=== PATIENT | male | born 1930 | race Caucasian/White ===

== ENCOUNTER → 2016-08-16 | Outpatient (CLI) | payer MEDICARE | LOC: GMAL 11:07 | PROVIDERS: ATTEND Family Medicine | DX: D51.3 Other dietary vitamin B12 deficiency anemia (principal); R53.82 Chronic fatigue, unspecified; E55.9 Vitamin D deficiency, unspecified ==

== ENCOUNTER → 2016-09-07 | Outpatient (CLI) | payer MEDICARE | LOC: GMAL 17:27 | PROVIDERS: ATTEND Family Medicine | DX: R56.9 Unspecified convulsions (principal) ==

== ENCOUNTER 2017-06-24 10:46 | Emergency (ER) | payer MEDICARE ==
[2017-06-24 11:27] VITALS: TEMP 97.8
[2017-06-24 12:57] VITALS: BP 158/74
[2017-06-24] MEDS ORDERED: NITROFURANTOIN MONOHYDRATE MAC 100 MG CAP PO ONE (13:17)
--- NOTE | 2017-06-24 13:23 | ED.PDOC ---
History of Present Illness - General Chief Complaint: Problem Stated Complaint: Leaking from around Costello cath Time Seen by Provider: 06/24/17 11:04 Source: patient, RN notes reviewed, Vital Signs reviewed, family - Exam Limitations: physical impairment - Minimally communicative since CVA - History of Present Illness Initial Comments: Patient comes in with c/o of leaking around his catheter. She took him to [facility] last night and catheter was replaced. He has continued to leak since then. Urine is draining into catheter bag but reports if he lays back he leaks. Denies any other symptoms. He uses a catheter chronically. Timing/Duration: yesterday Quality: intermittent - leaking with laying down but not with sitting up Onset Location: urethral Radiation: none Activites at Onset: sleep Prior abdominal problems: similar symptoms - Chronic catheter use to due BPH and CVA Sexual intercourse history: not active Improving Factors: nothing Worsening Factors: other - laying down Associated Symptoms: denies symptoms Allergies/Adverse Reactions: Allergies NO KNOWN ALLERGY Allergy (Verified 06/24/17 11:32) Home Medications: Ambulatory Orders LORazepam [Ativan] 0.5 mg PO BEDTIME 04/22/16 Potassium Citrate ER 540 mg PO TID 04/22/16 Sertraline HCl [Zoloft] 50 mg PO DAILY 04/22/16 Simvastatin 5 mg PO BEDTIME 04/22/16 Telmisartan 80 mg PO DAILY 04/22/16 amLODIPine BESYLATE [Norvasc] 10 mg PO DAILY 04/22/16 Donepezil Hydrochloride [Donepezil HCl] 10 mg PO DAILY 06/24/17 Levetiracetam [Levetiracetam ER] 500 mg PO BID 06/24/17 Nitrofurantoin Monohydrate Mac [Macrobid] 100 mg PO BID #20 cap 06/24/17 Review of Systems - Review of Systems Constitutional: States: no symptoms reported Respiratory: States: no symptoms reported Cardiology: States: no symptoms reported Gastrointestinal/Abdominal: States: no symptoms reported Genitourinary: States: see HPI Musculoskeletal: States: no symptoms reported Skin: States: no symptoms reported All other Systems: No Change from Baseline Past Medical History (General) - Patient Medical History Hx Seizures: No Hx Stroke: Yes - 1993 Hx Dementia: No Hx Asthma: No Hx of COPD: No Hx Cardiac Disorders: No Hx Congestive Heart Failure: No Hx Pacemaker: No Hx Hypertension: Yes Hx Thyroid Disease: No Hx Diabetes: No Hx Gastroesophageal Reflux: No Hx Renal Disease: No Hx Cancer: No Hx of HIV: No Hx Hepatitis C: No Hx MRSA: No Surgical History: colectomy - Vaccination History Hx Influenza Vaccination: No Hx Pneumococcal Vaccination: No - Social History Hx Tobacco Use: No Hx Alcohol Use: No Hx Substance Use: No Hx Substance Use Treatment: No Hx Depression: No Family Medical History - Family History Mother Family History: No Known Living Status: Physical Exam - Physical Exam General Appearance: Alert, Comfortable, No apparent distress, Well Developed, Well Groomed, Well Hydrated, Well Nourished Neck: supple, normal inspection Cardiovascular/Respiratory: regular rate, rhythm, no M/R/G, normal breath sounds , no respiratory distress Gastrointestinal/Abdominal: normal bowel sounds, non tender, soft, no organomegaly Male Genital Exam: normal genitalia, other - Catheter in place with urine leakage around it. No erythema or swelling Extremity: normal range of motion Neurologic: alert, normal mood/affect Skin Exam: normal color, warm/dry Comments: Vital Signs 06/24/17 06/24/17 11:25 12:45 Temperature 97.8 F Pulse Rate [ 71 64 Left Radial] Respiratory 18 16 Rate Blood Pressure 152/77 158/74 [Left Arm] O2 Sat by Pulse 93 L 94 L Oximetry Progress - Progress Progress: 06/24/17 13:26 Catheter checked by nursing staff. Flowing well. Added an additional 12cc of saline to bulb as only 8cc was present. Continued to lead around catheter. Recheck showed bulb stayed inflated w/o loss of volume. Discussed UTI with patient and . Will attempt to place a larger catheter as thinks the one that was taken out last night was larger than the one it was replaced with. Macrobid 100mg PO given 06/24/17 13:56 Catheter replaced with 18fr by nurse w/o difficulty Has not noticed any leaking since change. Will d/c home with Rx for Macrobid and follow up with Urologist. - Results/Orders Results/Orders: Laboratory Tests 06/24/17 12:24 Urine Color Yellow Urine Appearance Cloudy Urine pH 7.5 Ur Specific [place] 1.015 Urine Protein Negative Urine Glucose (UA) Negative Urine Ketones Negative Urine Blood Trace-intact H Urine Nitrite Negative Urine Bilirubin Negative Urine Urobilinogen 0.2 Ur Leukocyte Esterase Large H Urine RBC 3-5 H Urine WBC >50 H Ur Epithelial Cells 0 Urine Bacteria 4+ H Departure - Departure Clinical Impression: Catheter (urine) change required Urinary tract infection Qualifiers: Urinary tract infection type: acute cystitis Hematuria presence: without hematuria Qualified Code(s): N30.00 - Acute cystitis without hematuria Time of Disposition: 13:59 Disposition: Discharge to Home or Self Care Condition: Good Departure Forms: ED Discharge - Pt. Copy, Patient Portal Self Enrollment Instructions: DI for Urinary Tract Infection (UTI) Diet: resume usual diet Activity: increase activity as tolerated Referrals: Mook Lomeli III, MD [Primary Care Provider] - 1-2 Weeks Prescriptions: Nitrofurantoin Monohydrate Mac [Macrobid] 100 mg PO BID #20 cap Home Medications: Ambulatory Orders LORazepam [Ativan] 0.5 mg PO BEDTIME 04/22/16 Potassium Citrate ER 540 mg PO TID 04/22/16 Sertraline HCl [Zoloft] 50 mg PO DAILY 04/22/16 Simvastatin 5 mg PO BEDTIME 04/22/16 Telmisartan 80 mg PO DAILY 04/22/16 amLODIPine BESYLATE [Norvasc] 10 mg PO DAILY 04/22/16 Donepezil Hydrochloride [Donepezil HCl] 10 mg PO DAILY 06/24/17 Levetiracetam [Levetiracetam ER] 500 mg PO BID 06/24/17 Nitrofurantoin Monohydrate Mac [Macrobid] 100 mg PO BID #20 cap 06/24/17
[2017-06-24 14:26] VITALS: O2SAT 95
== END 2017-06-24 14:12 | disposition home or self-care (01) ==
LOC: ER 10:46
DX: T83.038A Leakage of other urinary catheter, initial encounter (principal); N30.00 Acute cystitis without hematuria; I10 Essential (primary) hypertension; Z86.73 Personal history of transient ischemic attack (TIA), and cerebral infarction without residual deficits; Z79.899 Other long term (current) drug therapy

== ENCOUNTER 2017-11-14 08:20 | Emergency (ER) | payer MEDICARE ==
--- NOTE | 2017-11-14 09:09 | ED.PDOC ---
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 Timing/Duration: yesterday Quality: other - no pain Onset Location: unknown Radiation: none Activites at Onset: none Prior abdominal problems: none Sexual intercourse history: not active Improving Factors: nothing Worsening Factors: nothing Associated Symptoms: denies symptoms Allergies/Adverse Reactions: Allergies NO KNOWN ALLERGY Allergy (Verified 06/24/17 11:32) Home Medications: Ambulatory Orders LORazepam [Ativan] 0.5 mg PO BEDTIME 04/22/16 Potassium Citrate ER 540 mg PO TID 04/22/16 Sertraline HCl [Zoloft] 50 mg PO DAILY 04/22/16 Simvastatin 5 mg PO BEDTIME 04/22/16 Telmisartan 80 mg PO DAILY 04/22/16 amLODIPine BESYLATE [Norvasc] 10 mg PO DAILY 04/22/16 Donepezil Hydrochloride [Donepezil HCl] 10 mg PO DAILY 06/24/17 Levetiracetam [Levetiracetam ER] 500 mg PO BID 06/24/17 Nitrofurantoin Monohydrate Mac [Macrobid] 100 mg PO BID #20 cap 06/24/17 Review of Systems - Review of Systems Constitutional: States: see HPI EENTM: States: no symptoms reported Respiratory: States: no symptoms reported Cardiology: States: no symptoms reported Gastrointestinal/Abdominal: States: no symptoms reported Genitourinary: States: see HPI All other Systems: Reviewed and Negative, No Change from Baseline Past Medical History (General) - Patient Medical History Hx Seizures: No Hx Stroke: Yes - 1993 Hx Dementia: No Hx Asthma: No Hx of COPD: No Hx Cardiac Disorders: Yes - high cholesterol Hx Congestive Heart Failure: No Hx Pacemaker: No Hx Hypertension: Yes Hx Thyroid Disease: No Hx Diabetes: No Hx Gastroesophageal Reflux: No Hx Renal Disease: No Hx Cancer: No Hx of HIV: No Hx Hepatitis C: No Hx MRSA: No - Vaccination History Hx Influenza Vaccination: No Hx Pneumococcal Vaccination: No - Social History Hx Tobacco Use: No Hx Alcohol Use: No Hx Substance Use: No Hx Substance Use Treatment: No Hx Depression: No Hx Physical Abuse: No Hx Emotional Abuse: No - Activities of Daily Living Patient Lives Alone: No Grooming Ability: Independent Eating (Feeding) Ability: Independent Toileting Ability: Independent Family Medical History - Family History Mother Family History: No Known Living Status: Physical Exam - Physical Exam General Appearance: Alert, Comfortable, No apparent distress, Other - non verbal from previous cva Eyes, Ears, Nose, Throat Exam: normal ENT inspection Neck: full range of motion, supple Cardiovascular/Respiratory: regular rate, rhythm, no M/R/G, normal peripheral pulses Gastrointestinal/Abdominal: non tender, soft, no organomegaly, other - no suprapubic distention but noted leakage of urine around meatus despite adding 20 more cc of water to the bulb. Back Exam: no CVA tenderness, no vertebral tenderness Extremity: no pedal edema, no calf tenderness Neurologic: alert, aphasia Skin Exam: normal color, warm/dry Progress - Progress Progress: 11/14/17 09:11 Vital Signs - 24 hr 11/14/17 08:29 Temperature 96.5 F L Pulse Rate [ 63 Right Radial] Respiratory 18 Rate Blood Pressure 148/76 [Left Arm] O2 Sat by Pulse 98 Oximetry 11/14/17 09:23 Indwelling cath replaced with Fr 18 indwelling cath noted blood in urine then irrigated with 50 cc 0f NS noted good flow of urine no leakage around meatus 11/14/17 09:56 Talked to about blood that came out after changing to bigger size catheter and explained that his urethra and bladder getting more friable from chronic indwelling cath but no further bleeding noted on the catheter bag.Advised to come back to er if there is concern about blockage of cath and any further bleeding. Departure - Departure Clinical Impression: Chronic indwelling Costello catheter Displacement of indwelling urethral catheter Qualifiers: Encounter type: initial encounter Qualified Code(s): T83.021A - Displacement of indwelling urethral catheter, initial encounter Time of Disposition: 10:00 Disposition: Discharge to Home or Self Care Condition: Fair Departure Forms: ED Discharge - Pt. Copy, Patient Portal Self Enrollment Referrals: STERLING ARGUETA MD [Primary Care Provider] - 1-2 Weeks Home Medications: Ambulatory Orders LORazepam [Ativan] 0.5 mg PO BEDTIME 04/22/16 Potassium Citrate ER 540 mg PO TID 04/22/16 Sertraline HCl [Zoloft] 50 mg PO DAILY 04/22/16 Simvastatin 5 mg PO BEDTIME 04/22/16 Telmisartan 80 mg PO DAILY 04/22/16 amLODIPine BESYLATE [Norvasc] 10 mg PO DAILY 04/22/16 Donepezil Hydrochloride [Donepezil HCl] 10 mg PO DAILY 06/24/17 Levetiracetam [Levetiracetam ER] 500 mg PO BID 06/24/17 Nitrofurantoin Monohydrate Mac [Macrobid] 100 mg PO BID #20 cap 06/24/17 Additional Instructions: Return to ER as needed;Follow up with primary Md and Urologist Dr. Argueta as needed
[2017-11-14 10:04] VITALS: BP 148/75; TEMP 97.1; O2SAT 99
== END 2017-11-14 10:05 | disposition home or self-care (01) ==
LOC: ER 08:20
DX: T83.021A Displacement of indwelling urethral catheter, initial encounter (principal); E78.00 Pure hypercholesterolemia, unspecified; I10 Essential (primary) hypertension; I69.928 Other speech and language deficits following unspecified cerebrovascular disease

== ENCOUNTER 2018-01-05 20:18 | Emergency (ER) | payer MEDICARE ==
--- NOTE | 2018-01-05 20:30 | ED.PDOC ---
History of Present Illness - General Chief Complaint: Problem Stated Complaint: problems with catheter Time Seen by Provider: 01/05/18 20:24 Source: family - Exam Limitations: no limitations - History of Present Illness Initial Comments: Reno Alfaro 87 y/o male with chronic indwelling catheter brought by stating not much urine coming out from rowland catheter after it was replaced at [facility] this am.Had history of old CVa w/speech deficit , neurogenic bladder and bph. Timing/Duration: this evening Quality: mild Onset Location: suprapubic Activites at Onset: none Prior abdominal problems: similar symptoms Sexual intercourse history: not active Improving Factors: nothing Worsening Factors: nothing Associated Symptoms: other - see hpi Allergies/Adverse Reactions: Allergies NO KNOWN ALLERGY Allergy (Verified 06/24/17 11:32) Home Medications: Ambulatory Orders LORazepam [Ativan] 0.5 mg PO BEDTIME 04/22/16 Potassium Citrate ER 540 mg PO TID 04/22/16 Sertraline HCl [Zoloft] 50 mg PO DAILY 04/22/16 Simvastatin 5 mg PO BEDTIME 04/22/16 Telmisartan 80 mg PO DAILY 04/22/16 amLODIPine BESYLATE [Norvasc] 10 mg PO DAILY 04/22/16 Donepezil Hydrochloride [Donepezil HCl] 10 mg PO DAILY 06/24/17 Levetiracetam [Levetiracetam ER] 500 mg PO BID 06/24/17 Nitrofurantoin Monohydrate Mac [Macrobid] 100 mg PO BID #20 cap 06/24/17 Review of Systems - Review of Systems Constitutional: States: no symptoms reported EENTM: States: no symptoms reported Respiratory: States: no symptoms reported Genitourinary: States: see HPI Neurological: States: see HPI All other Systems: Reviewed and Negative, No Change from Baseline Past Medical History (General) - Patient Medical History Hx Seizures: No Hx Stroke: Yes - 1993 Hx Dementia: No Hx Asthma: No Hx of COPD: No Hx Cardiac Disorders: Yes - high cholesterol Hx Congestive Heart Failure: No Hx Pacemaker: No Hx Hypertension: Yes Hx Thyroid Disease: No Hx Diabetes: No Hx Gastroesophageal Reflux: No Hx Renal Disease: No Hx Cancer: No Hx of HIV: No Hx Hepatitis C: No Hx MRSA: No - Vaccination History Hx Influenza Vaccination: No Hx Pneumococcal Vaccination: No - Social History Hx Tobacco Use: No Hx Alcohol Use: No Hx Substance Use: No Hx Substance Use Treatment: No Hx Depression: No Hx Physical Abuse: No Hx Emotional Abuse: No Family Medical History - Family History Mother Family History: No Known Living Status: Physical Exam - Physical Exam General Appearance: Alert, No apparent distress Eyes, Ears, Nose, Throat Exam: normal ENT inspection Neck: supple Cardiovascular/Respiratory: regular rate, rhythm, no M/R/G, normal peripheral pulses Gastrointestinal/Abdominal: non tender, soft, no organomegaly, other - indwelling catheter patent Male Genital Exam: other - indwelling catheter Back Exam: no CVA tenderness, no vertebral tenderness Neurologic: alert, other - dysarthria residual from old cva Progress - Progress Progress: 01/05/18 21:07 Vital Signs - 8 hr 01/05/18 20:23 Temperature 98.4 F Pulse Rate [ 80 left] Respiratory 18 Rate Blood Pressure 140/68 [left] O2 Sat by Pulse 97 Oximetry Catheter flushed and bulb inflated with good flow Departure - Departure Clinical Impression: Chronic indwelling Rowland catheter Rowland catheter problem Qualifiers: Encounter type: initial encounter Qualified Code(s): T83.9XXA - Unspecified complication of genitourinary prosthetic device, implant and graft, initial encounter Time of Disposition: 21:09 Disposition: Discharge to Home or Self Care Condition: Fair Departure Forms: ED Discharge - Pt. Copy, Patient Portal Self Enrollment Instructions: How to Care for Your Rowland Catheter -- Male Referrals: STERLING ARGUETA MD [Primary Care Provider] - 1-2 Weeks Home Medications: Ambulatory Orders LORazepam [Ativan] 0.5 mg PO BEDTIME 04/22/16 Potassium Citrate ER 540 mg PO TID 04/22/16 Sertraline HCl [Zoloft] 50 mg PO DAILY 04/22/16 Simvastatin 5 mg PO BEDTIME 04/22/16 Telmisartan 80 mg PO DAILY 04/22/16 amLODIPine BESYLATE [Norvasc] 10 mg PO DAILY 04/22/16 Donepezil Hydrochloride [Donepezil HCl] 10 mg PO DAILY 06/24/17 Levetiracetam [Levetiracetam ER] 500 mg PO BID 06/24/17 Nitrofurantoin Monohydrate Mac [Macrobid] 100 mg PO BID #20 cap 06/24/17 Additional Instructions: Follow up with your UROLOGIST as NEEDED
[2018-01-05 20:57] VITALS: TEMP 98.4; O2SAT 97
[2018-01-05 21:31] VITALS: BP 144/69
== END 2018-01-05 21:30 | disposition home or self-care (01) ==
LOC: ER 20:18
DX: T83.9XXA Unspecified complication of genitourinary prosthetic device, implant and graft, initial encounter (principal); I69.928 Other speech and language deficits following unspecified cerebrovascular disease; I69.998 Other sequelae following unspecified cerebrovascular disease; E78.00 Pure hypercholesterolemia, unspecified; I10 Essential (primary) hypertension

== ENCOUNTER 2018-01-06 16:51 | Emergency (ER) | payer MEDICARE ==
[2018-01-06 17:09] VITALS: TEMP 98.5
--- NOTE | 2018-01-06 17:48 | ED.PDOC ---
History of Present Illness - General Chief Complaint: Problem Time Seen by Provider: 01/06/18 17:45 Source: patient, family Exam Limitations: other - dementia primary historian was - History of Present Illness Initial Comments: patient comes in today for clogged catheter. Last night he was having some difficulties with it and he came to the emergency room and it was replaced. This morning it stopped draining again and he is having abdominal distention and discomfort. After it was irrigated by nurse on admission patient felt better and the catheter was able to be drained. He denies any fever, chills, nausea or vomiting. His says that he is doing fine except for the catheter which he's had for neurogenic bladder dysfunction for some time. History is limited from the patient as he does have advanced dementia. Timing/Duration: 4-6 hours Severity: moderate Improving Factors: nothing Worsening Factors: nothing Allergies/Adverse Reactions: Allergies NO KNOWN ALLERGY Allergy (Verified 06/24/17 11:32) Home Medications: Ambulatory Orders LORazepam [Ativan] 0.5 mg PO BEDTIME 04/22/16 Potassium Citrate ER 540 mg PO TID 04/22/16 Sertraline HCl [Zoloft] 50 mg PO DAILY 04/22/16 Simvastatin 5 mg PO BEDTIME 04/22/16 Telmisartan 80 mg PO DAILY 04/22/16 amLODIPine BESYLATE [Norvasc] 10 mg PO DAILY 04/22/16 Donepezil Hydrochloride [Donepezil HCl] 10 mg PO DAILY 06/24/17 Levetiracetam [Levetiracetam ER] 500 mg PO BID 06/24/17 Nitrofurantoin Monohydrate Mac [Macrobid] 100 mg PO BID #20 cap 06/24/17 Review of Systems - Review of Systems Constitutional: Denies: chills, fever EENTM: States: no symptoms reported Respiratory: States: no symptoms reported Cardiology: States: no symptoms reported Gastrointestinal/Abdominal: States: no symptoms reported Genitourinary: States: see HPI Past Medical History (General) - Patient Medical History Hx Seizures: No Hx Stroke: Yes - 1993 Hx Dementia: Yes Hx Asthma: No Hx of COPD: No Hx Cardiac Disorders: Yes - high cholesterol Hx Congestive Heart Failure: No Hx Pacemaker: No Hx Hypertension: Yes Hx Thyroid Disease: No Hx Diabetes: No Hx Gastroesophageal Reflux: No Hx Renal Disease: No Hx Cancer: No Hx of HIV: No Hx Hepatitis C: No Hx MRSA: No - Vaccination History Hx Tetanus, Diphtheria Vaccination: No Hx Influenza Vaccination: No Hx Pneumococcal Vaccination: No - Social History Hx Tobacco Use: No Hx Alcohol Use: No Hx Substance Use: No Hx Substance Use Treatment: No Hx Depression: No Hx Physical Abuse: No Hx Emotional Abuse: No Family Medical History - Family History Mother Family History: No Known Living Status: Physical Exam - Physical Exam General Appearance: No apparent distress Neck: non-tender, full range of motion Respiratory: chest non-tender, lungs clear, normal breath sounds Cardiovascular/Chest: normal peripheral pulses, regular rate, rhythm, no edema, no gallop, no JVD, no murmur Gastrointestinal/Abdominal: normal bowel sounds, non tender, soft, no organomegaly Departure - Departure Clinical Impression: Costello catheter problem Qualifiers: Encounter type: initial encounter Qualified Code(s): T83.9XXA - Unspecified complication of genitourinary prosthetic device, implant and graft, initial encounter Disposition: Discharge to Home or Self Care Condition: Good Departure Forms: ED Discharge - Pt. Copy, Patient Portal Self Enrollment Diet: regular diet Referrals: STERLING ARGUETA MD [Primary Care Provider] - 1-2 Weeks Home Medications: Ambulatory Orders LORazepam [Ativan] 0.5 mg PO BEDTIME 04/22/16 Potassium Citrate ER 540 mg PO TID 04/22/16 Sertraline HCl [Zoloft] 50 mg PO DAILY 04/22/16 Simvastatin 5 mg PO BEDTIME 04/22/16 Telmisartan 80 mg PO DAILY 04/22/16 amLODIPine BESYLATE [Norvasc] 10 mg PO DAILY 04/22/16 Donepezil Hydrochloride [Donepezil HCl] 10 mg PO DAILY 06/24/17 Levetiracetam [Levetiracetam ER] 500 mg PO BID 06/24/17 Nitrofurantoin Monohydrate Mac [Macrobid] 100 mg PO BID #20 cap 06/24/17 Additional Instructions: follow-up with PCP on Sunday morning and sooner if any problems with the catheter. Return to ER for fever, chills, nausea, vomiting, or failure for the catheter to continue to drain.
[2018-01-06] MEDS ORDERED: cefTRIAXone SODIUM 1 GM VIAL IM ONE (18:34)
[2018-01-06] MEDS ORDERED: LIDOCAINE 1% 10 ML VIAL INJ ONE (18:43)
[2018-01-06 19:00] VITALS: BP 132/71; O2SAT 93
== END 2018-01-06 18:59 | disposition home or self-care (01) ==
LOC: ER 16:51
DX: T83.098A Other mechanical complication of other urinary catheter, initial encounter (principal); F03.90 Unspecified dementia, unspecified severity, without behavioral disturbance, psychotic disturbance, mood disturbance, and anxiety; E78.00 Pure hypercholesterolemia, unspecified; I10 Essential (primary) hypertension; Z86.73 Personal history of transient ischemic attack (TIA), and cerebral infarction without residual deficits; Z79.899 Other long term (current) drug therapy
CPT/HCPCS: 81001; 87086; J0696

== ENCOUNTER 2018-01-07 13:37 | Emergency (ER) | payer MEDICARE ==
--- NOTE | 2018-01-07 13:59 | ED.PDOC ---
History of Present Illness - General Chief Complaint: Problem Stated Complaint: catheter problems Time Seen by Provider: 01/07/18 13:56 Source: patient, family Exam Limitations: clinical condition - History of Present Illness Initial Comments: the patient's 87-year-old male presenting to the emergency room secondary to having his Costello catheter pulled out on accident home. He had this placed several days ago secondary to urinary retention. He is still having some urinary retention since he came out of couple of hours ago. There is no blood at the urethral meatus. Catheter is completely out upon arrival. Timing/Duration: 1-3 hours Severity: mild Improving Factors: nothing Worsening Factors: nothing Associated Symptoms: denies symptoms Allergies/Adverse Reactions: Allergies NO KNOWN ALLERGY Allergy (Verified 06/24/17 11:32) Home Medications: Ambulatory Orders LORazepam [Ativan] 0.5 mg PO BEDTIME 04/22/16 Potassium Citrate ER 540 mg PO TID 04/22/16 Sertraline HCl [Zoloft] 50 mg PO DAILY 04/22/16 Simvastatin 5 mg PO BEDTIME 04/22/16 Telmisartan 80 mg PO DAILY 04/22/16 amLODIPine BESYLATE [Norvasc] 10 mg PO DAILY 04/22/16 Donepezil Hydrochloride [Donepezil HCl] 10 mg PO DAILY 06/24/17 Levetiracetam [Levetiracetam ER] 500 mg PO BID 06/24/17 Nitrofurantoin Monohydrate Mac [Macrobid] 100 mg PO BID #20 cap 06/24/17 Sulfa/Trimeth 800/160 (Ds) Tab [Bactrim DS] 1 tablet PO BID #20 tab 01/06/18 Review of Systems - Review of Systems Review of Systems: 01/07/18 13:58 review of systems is significantly limited secondary to dementia. Constitutional: States: no symptoms reported EENTM: States: no symptoms reported Respiratory: States: no symptoms reported Cardiology: States: no symptoms reported Gastrointestinal/Abdominal: States: no symptoms reported Genitourinary: States: see HPI Skin: States: no symptoms reported Neurological: States: see HPI Endocrine: States: no symptoms reported Past Medical History (General) - Patient Medical History Hx Seizures: No Hx Stroke: Yes - 1993 Hx Dementia: Yes Hx Asthma: No Hx of COPD: No Hx Cardiac Disorders: Yes - high cholesterol Hx Congestive Heart Failure: No Hx Pacemaker: No Hx Hypertension: Yes Hx Thyroid Disease: No Hx Diabetes: No Hx Gastroesophageal Reflux: No Hx Renal Disease: No Hx Cancer: No Hx of HIV: No Hx Hepatitis C: No Hx MRSA: No - Vaccination History Hx Tetanus, Diphtheria Vaccination: No Hx Influenza Vaccination: No Hx Pneumococcal Vaccination: No - Social History Hx Tobacco Use: No Hx Alcohol Use: No Hx Substance Use: No Hx Substance Use Treatment: No Hx Depression: No Hx Physical Abuse: No Hx Emotional Abuse: No Family Medical History - Family History Mother Family History: No Known Living Status: Physical Exam - Physical Exam General Appearance: Alert, Comfortable, No apparent distress Eye Exam: bilateral normal Ears, Nose, Throat: normal ENT inspection, normal pharynx Neck: full range of motion, supple Respiratory: no respiratory distress, no accessory muscle use Cardiovascular/Chest: normal peripheral pulses, no edema Peripheral Pulses: dorsalis pedis,right: 2+, dorsalis pedis,left: 2+ Gastrointestinal/Abdominal: non tender, soft, other - mild suprapubic discomfort secondary to bladder filling Rectal Exam: deferred Back Exam: normal inspection, no CVA tenderness Extremity: non-tender, normal inspection, no pedal edema, normal capillary refill Neurologic: ad writer II-XII nml as tested, alert, normal mood/affect - ccording to Skin Exam: normal color Comments: Vital Signs - 8 hr 01/07/18 13:49 Temperature 98.2 F Pulse Rate [ 81 Left] Respiratory 20 Rate Blood Pressure 148/72 [Left Arm] O2 Sat by Pulse 95 Oximetry Progress - Progress Progress: 01/07/18 13:59 the patient is an 87-year-old male presenting secondary to accidental removal of Costello catheter. Catheter was initially placed secondary to urinary retention which appears to still be a problem. Costello catheter was replaced. He needs to keep his follow-up as was previously scheduled. ER warnings were given. Departure - Departure Clinical Impression: Urinary retention Disposition: Discharge to Home or Self Care Condition: Fair Departure Forms: ED Discharge - Pt. Copy, Patient Portal Self Enrollment Instructions: DI for Urinary Retention in Men Diet: regular diet Activity: increase activity as tolerated Referrals: Darion Meredith [Primary Care Provider] - 1-2 Weeks Home Medications: Ambulatory Orders LORazepam [Ativan] 0.5 mg PO BEDTIME 04/22/16 Potassium Citrate ER 540 mg PO TID 04/22/16 Sertraline HCl [Zoloft] 50 mg PO DAILY 04/22/16 Simvastatin 5 mg PO BEDTIME 04/22/16 Telmisartan 80 mg PO DAILY 04/22/16 amLODIPine BESYLATE [Norvasc] 10 mg PO DAILY 04/22/16 Donepezil Hydrochloride [Donepezil HCl] 10 mg PO DAILY 06/24/17 Levetiracetam [Levetiracetam ER] 500 mg PO BID 06/24/17 Nitrofurantoin Monohydrate Mac [Macrobid] 100 mg PO BID #20 cap 06/24/17 Sulfa/Trimeth 800/160 (Ds) Tab [Bactrim DS] 1 tablet PO BID #20 tab 01/06/18 Additional Instructions: the patient is an 87-year-old male presenting secondary to accidental removal of Costello catheter. Catheter was initially placed secondary to urinary retention which appears to still be a problem. Costello catheter was replaced. He needs to keep his follow-up as was previously scheduled. ER warnings were given.
[2018-01-07 14:35] VITALS: BP 148/72; TEMP 98.2
[2018-01-07 15:28] VITALS: O2SAT 96
== END 2018-01-07 15:28 | disposition home or self-care (01) ==
LOC: ER 13:37
DX: T83.021A Displacement of indwelling urethral catheter, initial encounter (principal); R33.9 Retention of urine, unspecified; F03.90 Unspecified dementia, unspecified severity, without behavioral disturbance, psychotic disturbance, mood disturbance, and anxiety; E78.00 Pure hypercholesterolemia, unspecified; I10 Essential (primary) hypertension; Z86.73 Personal history of transient ischemic attack (TIA), and cerebral infarction without residual deficits; Z79.899 Other long term (current) drug therapy

== ENCOUNTER 2018-02-19 03:30 | Emergency (ER) | payer MEDICARE ==
[2018-02-19 03:55] VITALS: BP 137/74; TEMP 96.4; O2SAT 96
--- NOTE | 2018-02-19 03:59 | ED.PDOC ---
History of Present Illness - General Chief Complaint: General Stated Complaint: catheter problems Time Seen by Provider: 02/19/18 03:56 Source: patient, family Exam Limitations: clinical condition - History of Present Illness Initial Comments: the patient is an 87-year-old male with dementia presented to the emergency room with family secondary to the catheter leaking. The catheter does appear to be working well however the leg bag is completely full and urine is backed up. Once the bag is empty there does not appear to be any significant leakage. He is pleasant and cooperative tonight. No evidence of any discomfort. Timing/Duration: 1-3 hours Severity: mild Improving Factors: nothing Worsening Factors: nothing Allergies/Adverse Reactions: Allergies NO KNOWN ALLERGY Allergy (Verified 06/24/17 11:32) Home Medications: Ambulatory Orders LORazepam [Ativan] 0.5 mg PO BEDTIME 04/22/16 Potassium Citrate ER 540 mg PO TID 04/22/16 Sertraline HCl [Zoloft] 50 mg PO DAILY 04/22/16 Simvastatin 5 mg PO BEDTIME 04/22/16 Telmisartan 80 mg PO DAILY 04/22/16 amLODIPine BESYLATE [Norvasc] 10 mg PO DAILY 04/22/16 Donepezil Hydrochloride [Donepezil HCl] 10 mg PO DAILY 06/24/17 Levetiracetam [Levetiracetam ER] 500 mg PO BID 06/24/17 Nitrofurantoin Monohydrate Mac [Macrobid] 100 mg PO BID #20 cap 06/24/17 Sulfa/Trimeth 800/160 (Ds) Tab [Bactrim DS] 1 tablet PO BID #20 tab 01/06/18 Review of Systems - Review of Systems Constitutional: States: no symptoms reported EENTM: States: no symptoms reported Respiratory: States: no symptoms reported Cardiology: States: no symptoms reported Gastrointestinal/Abdominal: States: no symptoms reported Genitourinary: States: see HPI Musculoskeletal: States: no symptoms reported Skin: States: no symptoms reported Neurological: States: no symptoms reported All other Systems: No Change from Baseline Past Medical History (General) - Patient Medical History Hx Seizures: No Hx Stroke: Yes - 1993 Hx Dementia: Yes Hx Asthma: No Hx of COPD: No Hx Cardiac Disorders: Yes - high cholesterol Hx Congestive Heart Failure: No Hx Pacemaker: No Hx Hypertension: Yes Hx Thyroid Disease: No Hx Diabetes: No Hx Gastroesophageal Reflux: No Hx Renal Disease: No Hx Cancer: No Hx of HIV: No Hx Hepatitis C: No Hx MRSA: No - Vaccination History Hx Tetanus, Diphtheria Vaccination: No Hx Influenza Vaccination: No Hx Pneumococcal Vaccination: No Immunizations Up to Date: Yes - Social History Hx Tobacco Use: No Hx Alcohol Use: No Hx Substance Use: No Hx Substance Use Treatment: No Hx Depression: No Hx Physical Abuse: No Hx Emotional Abuse: No - Triage Comment ED Triage Comment: pt only has leg bag, and spouse states noticed wetness to pajamas during the night. Emptied bag but could not find leak. Family Medical History - Family History Mother Family History: No Known Living Status: Physical Exam - Physical Exam General Appearance: Alert, Comfortable, No apparent distress Eye Exam: bilateral normal Ears, Nose, Throat: normal ENT inspection Neck: non-tender, supple Respiratory: lungs clear, no respiratory distress, no accessory muscle use Cardiovascular/Chest: normal peripheral pulses, no edema, tachycardia Peripheral Pulses: radial,right: 2+, radial,left: 2+ Gastrointestinal/Abdominal: non tender, soft Rectal Exam: deferred Extremity: non-tender, no pedal edema, no calf tenderness, normal capillary refill Neurologic: head esthetician II-XII nml as tested, alert, normal mood/affect Skin Exam: normal color Comments: Vital Signs - 24 hr 02/19/18 03:50 Temperature 96.4 F L Pulse Rate [ 58 L Right] Respiratory 16 Rate Blood Pressure 137/74 [Right Arm] O2 Sat by Pulse 96 Oximetry Progress - Progress Progress: 02/19/18 03:58 the patient's 87-year-old male presenting due to some leakage around his urinary catheter. Currently his leg bag is full and once it is empty and the leakage stops. Family should contact medical supply tomorrow to obtain a slightly larger size leg bag to prevent this from happening. The catheter itself appears to be in good shape. Urine appears to be clear. The patient is asymptomatic. He will be discharged home to follow up with his primary care doctor in the coming week or 2. Departure - Departure Clinical Impression: Costello catheter problem Qualifiers: Encounter type: initial encounter Qualified Code(s): T83.9XXA - Unspecified complication of genitourinary prosthetic device, implant and graft, initial encounter Disposition: Discharge to Home or Self Care Condition: Fair Departure Forms: ED Discharge - Pt. Copy, Patient Portal Self Enrollment Diet: regular diet Activity: increase activity as tolerated Referrals: Darion Meredith [Primary Care Provider] - 1-2 Weeks Home Medications: Ambulatory Orders LORazepam [Ativan] 0.5 mg PO BEDTIME 04/22/16 Potassium Citrate ER 540 mg PO TID 04/22/16 Sertraline HCl [Zoloft] 50 mg PO DAILY 04/22/16 Simvastatin 5 mg PO BEDTIME 04/22/16 Telmisartan 80 mg PO DAILY 04/22/16 amLODIPine BESYLATE [Norvasc] 10 mg PO DAILY 04/22/16 Donepezil Hydrochloride [Donepezil HCl] 10 mg PO DAILY 06/24/17 Levetiracetam [Levetiracetam ER] 500 mg PO BID 06/24/17 Nitrofurantoin Monohydrate Mac [Macrobid] 100 mg PO BID #20 cap 06/24/17 Sulfa/Trimeth 800/160 (Ds) Tab [Bactrim DS] 1 tablet PO BID #20 tab 01/06/18 Additional Instructions: the patient's 87-year-old male presenting due to some leakage around his urinary catheter. Currently his leg bag is full and once it is empty and the leakage stops. Family should contact medical supply tomorrow to obtain a slightly larger size leg bag to prevent this from happening. The catheter itself appears to be in good shape. Urine appears to be clear. The patient is asymptomatic. He will be discharged home to follow up with his primary care doctor in the coming week or 2.
== END 2018-02-19 04:09 | disposition home or self-care (01) ==
LOC: ER 03:30
DX: T83.038A Leakage of other urinary catheter, initial encounter (principal); I10 Essential (primary) hypertension; E78.00 Pure hypercholesterolemia, unspecified; F03.90 Unspecified dementia, unspecified severity, without behavioral disturbance, psychotic disturbance, mood disturbance, and anxiety; Z86.73 Personal history of transient ischemic attack (TIA), and cerebral infarction without residual deficits; Z79.899 Other long term (current) drug therapy

== ENCOUNTER 2018-06-01 10:23 | Emergency (ER) | payer MEDICARE ==
[2018-06-01 10:43] VITALS: TEMP 97.5
--- NOTE | 2018-06-01 10:55 | ED.PDOC ---
History of Present Illness - General Chief Complaint: Problem Stated Complaint: leaking catheter Time Seen by Provider: 06/01/18 10:53 Source: patient, family Exam Limitations: no limitations - History of Present Illness Initial Comments: Patient has had an indwelling catheter for several years. [place] only had a small catheter and it is leaking. He has no other acute complaints. No fever, chills, abdominal pain. Timing/Duration: just prior to arrival Quality: mild Radiation: none Activites at Onset: none Prior abdominal problems: none Allergies/Adverse Reactions: Allergies NO KNOWN ALLERGY Allergy (Verified 06/24/17 11:32) Home Medications: Ambulatory Orders LORazepam [Ativan] 0.5 mg PO BEDTIME 04/22/16 Potassium Citrate ER 540 mg PO TID 04/22/16 Sertraline HCl [Zoloft] 50 mg PO DAILY 04/22/16 Simvastatin 5 mg PO BEDTIME 04/22/16 Telmisartan 80 mg PO DAILY 04/22/16 amLODIPine BESYLATE [Norvasc] 10 mg PO DAILY 04/22/16 Donepezil Hydrochloride [Donepezil HCl] 10 mg PO DAILY 06/24/17 Levetiracetam [Levetiracetam ER] 500 mg PO BID 06/24/17 Nitrofurantoin Monohydrate Mac [Macrobid] 100 mg PO BID #20 cap 06/24/17 Sulfa/Trimeth 800/160 (Ds) Tab [Bactrim DS] 1 tablet PO BID #20 tab 01/06/18 Review of Systems - Review of Systems Constitutional: States: no symptoms reported EENTM: States: no symptoms reported Respiratory: States: no symptoms reported Cardiology: States: no symptoms reported Gastrointestinal/Abdominal: States: no symptoms reported Genitourinary: States: see HPI Past Medical History (General) - Patient Medical History Hx Seizures: No Hx Stroke: Yes - 1993 Hx Dementia: Yes Hx Asthma: No Hx of COPD: No Hx Cardiac Disorders: Yes - high cholesterol Hx Congestive Heart Failure: No Hx Pacemaker: No Hx Hypertension: Yes Hx Thyroid Disease: No Hx Diabetes: No Hx Gastroesophageal Reflux: No Hx Renal Disease: No Hx Cancer: No Hx of HIV: No Hx Hepatitis C: No Hx MRSA: No - Vaccination History Hx Tetanus, Diphtheria Vaccination: No Hx Influenza Vaccination: Yes Hx Pneumococcal Vaccination: Yes Immunizations Up to Date: No - Social History Hx Tobacco Use: No Hx Chewing Tobacco Use: No Hx Alcohol Use: No Hx Substance Use: No Hx Substance Use Treatment: No Hx Depression: No Feels Threatened In Home Enviroment: No Feels Threatened In a Relationship: No Hx Physical Abuse: No Hx Emotional Abuse: No Hx Suspected Abuse: No - Female History Patient is a Female of Child Bearing Age (10 -59 yrs old): No Patient : No Family Medical History - Family History Mother Family History: No Known Living Status: Physical Exam - Physical Exam General Appearance: Alert, Frail, No apparent distress Cardiovascular/Respiratory: regular rate, rhythm, no M/R/G, normal peripheral pulses, normal breath sounds, no respiratory distress Gastrointestinal/Abdominal: normal bowel sounds, non tender, soft Progress - EKG/XRAY/CT CT Ordered: No CT Interpretation Call Back: No Departure - Departure Clinical Impression: Catheter (urine) change required Disposition: Discharge to Home or Self Care Condition: Good Departure Forms: ED Discharge - Pt. Copy, Patient Portal Self Enrollment Diet: resume usual diet Referrals: Darion Meredith [Primary Care Provider] - 1-2 Weeks Home Medications: Ambulatory Orders LORazepam [Ativan] 0.5 mg PO BEDTIME 04/22/16 Potassium Citrate ER 540 mg PO TID 04/22/16 Sertraline HCl [Zoloft] 50 mg PO DAILY 04/22/16 Simvastatin 5 mg PO BEDTIME 04/22/16 Telmisartan 80 mg PO DAILY 04/22/16 amLODIPine BESYLATE [Norvasc] 10 mg PO DAILY 04/22/16 Donepezil Hydrochloride [Donepezil HCl] 10 mg PO DAILY 06/24/17 Levetiracetam [Levetiracetam ER] 500 mg PO BID 06/24/17 Nitrofurantoin Monohydrate Mac [Macrobid] 100 mg PO BID #20 cap 06/24/17 Sulfa/Trimeth 800/160 (Ds) Tab [Bactrim DS] 1 tablet PO BID #20 tab 01/06/18
[2018-06-01 13:04] VITALS: BP 146/82; O2SAT 96
== END 2018-06-01 13:04 | disposition home or self-care (01) ==
LOC: ER 10:23
DX: Z46.6 Encounter for fitting and adjustment of urinary device (principal); I10 Essential (primary) hypertension; E78.00 Pure hypercholesterolemia, unspecified; F03.90 Unspecified dementia, unspecified severity, without behavioral disturbance, psychotic disturbance, mood disturbance, and anxiety; Z86.73 Personal history of transient ischemic attack (TIA), and cerebral infarction without residual deficits; Z79.899 Other long term (current) drug therapy

== ENCOUNTER 2018-08-06 18:44 | Emergency (ER) | payer MEDICARE ==
--- NOTE | 2018-08-06 19:17 | ED.PDOC ---
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 Timing/Duration: other - see hpi Associated Symptoms: denies symptoms Allergies/Adverse Reactions: Allergies NO KNOWN ALLERGY Allergy (Verified 06/24/17 11:32) Home Medications: Ambulatory Orders LORazepam [Ativan] 0.5 mg PO BEDTIME 04/22/16 Potassium Citrate ER 540 mg PO TID 04/22/16 Sertraline HCl [Zoloft] 50 mg PO DAILY 04/22/16 Simvastatin 5 mg PO BEDTIME 04/22/16 Telmisartan 80 mg PO DAILY 04/22/16 amLODIPine BESYLATE [Norvasc] 10 mg PO DAILY 04/22/16 Donepezil Hydrochloride [Donepezil HCl] 10 mg PO DAILY 06/24/17 Levetiracetam [Levetiracetam ER] 500 mg PO BID 06/24/17 Nitrofurantoin Monohydrate Mac [Macrobid] 100 mg PO BID #20 cap 06/24/17 Sulfa/Trimeth 800/160 (Ds) Tab [Bactrim DS] 1 tablet PO BID #20 tab 01/06/18 Review of Systems - Review of Systems All other Systems: Reviewed and Negative, No Change from Baseline Past Medical History (General) - Patient Medical History Hx Seizures: No Hx Stroke: Yes - 1993 Hx Dementia: Yes Hx Asthma: No Hx of COPD: No Hx Cardiac Disorders: Yes - high cholesterol Hx Congestive Heart Failure: No Hx Pacemaker: No Hx Hypertension: Yes Hx Thyroid Disease: No Hx Diabetes: No Hx Gastroesophageal Reflux: No Hx Renal Disease: No Hx Cancer: No Hx of HIV: No Hx Hepatitis C: No Hx MRSA: No - Vaccination History Hx Tetanus, Diphtheria Vaccination: No Hx Influenza Vaccination: Yes Hx Pneumococcal Vaccination: Yes - Social History Hx Tobacco Use: No Hx Chewing Tobacco Use: No Hx Alcohol Use: No Hx Substance Use: No Hx Substance Use Treatment: No Hx Depression: No Hx Physical Abuse: No Hx Emotional Abuse: No Hx Suspected Abuse: No - Female History Patient : No Family Medical History - Family History Mother Family History: No Known Living Status: Physical Exam - Physical Exam General Appearance: Alert, Comfortable, No apparent distress Eyes, Ears, Nose, Throat Exam: normal ENT inspection Neck: supple, normal inspection Cardiovascular/Respiratory: regular rate, rhythm, normal peripheral pulses Gastrointestinal/Abdominal: non tender, soft Male Genital Exam: normal genitalia Extremity: no pedal edema, no calf tenderness Neurologic: alert, other - dysarthria-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 cva Progress - Progress Progress: 08/06/18 19:25 Vital Signs - 8 hr 08/06/18 19:14 Temperature 97.8 F Pulse Rate [ 69 left] Respiratory 18 Rate Blood Pressure 153/77 [left] O2 Sat by Pulse 95 Oximetry 08/06/18 19:25 Catheter bag replaced no longer leaking Departure - Departure Clinical Impression: Chronic indwelling Costello catheter Leakage from urinary catheter Qualifiers: Encounter type: initial encounter Qualified Code(s): T83.038A - Leakage of other urinary catheter, initial encounter Time of Disposition: 19:26 Disposition: Discharge to Home or Self Care Condition: Fair Departure Forms: ED Discharge - Pt. Copy, Patient Portal Self Enrollment Referrals: Darion Meredith [Primary Care Provider] - 1-2 Weeks Home Medications: Ambulatory Orders LORazepam [Ativan] 0.5 mg PO BEDTIME 04/22/16 Potassium Citrate ER 540 mg PO TID 04/22/16 Sertraline HCl [Zoloft] 50 mg PO DAILY 04/22/16 Simvastatin 5 mg PO BEDTIME 04/22/16 Telmisartan 80 mg PO DAILY 04/22/16 amLODIPine BESYLATE [Norvasc] 10 mg PO DAILY 04/22/16 Donepezil Hydrochloride [Donepezil HCl] 10 mg PO DAILY 06/24/17 Levetiracetam [Levetiracetam ER] 500 mg PO BID 06/24/17 Nitrofurantoin Monohydrate Mac [Macrobid] 100 mg PO BID #20 cap 06/24/17 Sulfa/Trimeth 800/160 (Ds) Tab [Bactrim DS] 1 tablet PO BID #20 tab 01/06/18
[2018-08-06 19:22] VITALS: BP 153/77; TEMP 97.8; O2SAT 95
== END 2018-08-06 19:40 | disposition home or self-care (01) ==
LOC: ER 18:44
DX: T83.038A Leakage of other urinary catheter, initial encounter (principal); N31.9 Neuromuscular dysfunction of bladder, unspecified; F03.90 Unspecified dementia, unspecified severity, without behavioral disturbance, psychotic disturbance, mood disturbance, and anxiety; E78.00 Pure hypercholesterolemia, unspecified; I10 Essential (primary) hypertension; Z86.73 Personal history of transient ischemic attack (TIA), and cerebral infarction without residual deficits; Z79.899 Other long term (current) drug therapy